=== PATIENT | male | born 1925 | race African-American/Black ===

== ENCOUNTER → 2016-12-12 | Outpatient (CLI) | payer MEDICARE ==
[2016-12-12 17:17] LABS: ANION GAP 14 (5-19); BLOOD UREA NITROGEN 16 mg/dL (7-20); CALCIUM 9.7 mg/dL (8.4-10.2); CARBON DIOXIDE 24 mmol/L (22-30); CHLORIDE 101 mmol/L (98-107); CREATININE RESULT 0.77 mg/dL (0.52-1.25); GLUCOSE 117 mg/dL (75-110); POTASSIUM 4.6 mmol/L (3.6-5.0); SODIUM 138.8 mmol/L (137-145)
== END ==
LOC: OD 14:41
PROVIDERS: ATTEND Family Medicine
DX: Z79.899 Other long term (current) drug therapy (principal)
CPT/HCPCS: 36415; 80048

== ENCOUNTER → 2016-12-13 | Outpatient (CLI) | payer MEDICARE | LOC: OD 16:58 | PROVIDERS: ATTEND Family Medicine | DX: M25.552 Pain in left hip (principal); M25.512 Pain in left shoulder; M16.12 Unilateral primary osteoarthritis, left hip ==

== ENCOUNTER → 2017-03-09 | Outpatient (CLI) | payer MEDICARE ==
[2017-03-09 08:12] LABS: ABSOLUTE EOSINOPHILS # (AUTO) 0.3 10^3/uL (0.0-0.6); ABSOLUTE LYMPHOCYTES (AUTO) 2.4 10^3/uL (0.5-4.7); ABSOLUTE MONOCYTES (AUTO) 0.8 10^3/uL (0.1-1.4); ABSOLUTE NEUT (AUTO) 4.5 10^3/uL (1.7-8.2); BASOPHILS % (AUTO) 0.4 % (0-2); EOSINOPHILS % (AUTO) 4.3 % (0-6); HEMATOCRIT 45.2 % (37.9-51.0); HEMOGLOBIN 14.5 g/dL (13.5-17.0); HGB HCT DIFFERENCE -1.7; LYMPHOCYTES % (AUTO) 29.6 % (13-45); MEAN CORPUSCULAR HEMOGLOBIN 26.2 pg (27.0-33.4); MEAN CORPUSCULAR HGB CONC 32.1 g/dL (32.0-36.0); MEAN CORPUSCULAR VOLUME 82 fl (80-97); MONOCYTES % (AUTO) 9.7 % (3-13); RED BLOOD COUNT 5.53 10^6/uL (4.35-5.55); RED CELL DISTRIBUTION WIDTH 15.4 % (11.5-14.0)
[2017-03-09 08:41] LABS: ALANINE AMINOTRANSFERASE 41 U/L (21-72); ALBUMIN 4.2 g/dL (3.5-5.0); ALKALINE PHOSPHATASE 59 U/L (38-126); ANION GAP 13 (5-19); ASPARTATE AMINO TRANSFERASE 29 U/L (17-59); BILIRUBIN,DIRECT 0.4 mg/dL (0.0-0.4); BILIRUBIN,TOTAL 0.7 mg/dL (0.2-1.3); BLOOD UREA NITROGEN 29 mg/dL (7-20); CALCIUM 9.6 mg/dL (8.4-10.2); CARBON DIOXIDE 26 mmol/L (22-30); CHLORIDE 100 mmol/L (98-107); CREATININE RESULT 1.05 mg/dL (0.52-1.25); GLUCOSE 99 mg/dL (75-110); POTASSIUM 5.5 mmol/L (3.6-5.0); SODIUM 139.2 mmol/L (137-145); TOTAL PROTEIN 7.5 g/dL (6.3-8.2)
== END ==
LOC: OD 07:20
PROVIDERS: ATTEND Family Medicine
DX: Z79.899 Other long term (current) drug therapy (principal); E04.1 Nontoxic single thyroid nodule
CPT/HCPCS: 36415; 80053; 84443; 85025

== ENCOUNTER → 2017-03-24 | Outpatient (CLI) | payer MEDICARE | LOC: OD 16:16 | PROVIDERS: ATTEND Family Medicine | DX: E87.5 Hyperkalemia (principal) | CPT/HCPCS: 36415; 84132 ==